=== PATIENT | female | born 1975 | race Caucasian/White ===

== ENCOUNTER → 2016-06-26 | Outpatient (CLI) | payer OTHER ==
[~2016-06-26] MED LIST: PRENCAP6 PO
== END ==
LOC: HPND 13:05
PROVIDERS: ATTEND Obstetrics & Gynecology
DX: O09.521 Supervision of elderly multigravida, first trimester (principal); O34.212 Maternal care for vertical scar from previous cesarean delivery; O03.9 Complete or unspecified spontaneous abortion without complication; O03.4 Incomplete spontaneous abortion without complication; O34.211 Maternal care for low transverse scar from previous cesarean delivery
CPT/HCPCS: 36416; 76813

== ENCOUNTER → 2016-08-07 | Outpatient (CLI) | payer OTHER | LOC: HPND 08:06 | PROVIDERS: ATTEND Obstetrics & Gynecology | DX: O09.522 Supervision of elderly multigravida, second trimester (principal); Z3A.20 20 weeks gestation of pregnancy | CPT/HCPCS: 76811 ==

== ENCOUNTER → 2016-09-04 | Outpatient (CLI) | payer OTHER | LOC: HPND 07:35 | PROVIDERS: ATTEND Obstetrics & Gynecology | DX: O09.522 Supervision of elderly multigravida, second trimester (principal); O44.02 Complete placenta previa NOS or without hemorrhage, second trimester; Z3A.24 24 weeks gestation of pregnancy | CPT/HCPCS: 76816; 76817 ==

== ENCOUNTER → 2016-10-02 | Outpatient (CLI) | payer OTHER | LOC: HPND 07:42 | PROVIDERS: ATTEND Obstetrics & Gynecology | DX: O09.522 Supervision of elderly multigravida, second trimester (principal); O44.02 Complete placenta previa NOS or without hemorrhage, second trimester; O34.212 Maternal care for vertical scar from previous cesarean delivery | CPT/HCPCS: 76816; 76817 ==

== ENCOUNTER → 2016-10-30 | Outpatient (CLI) | payer OTHER | LOC: HPND 07:46 | PROVIDERS: ATTEND Obstetrics & Gynecology | DX: O09.523 Supervision of elderly multigravida, third trimester (principal); O34.212 Maternal care for vertical scar from previous cesarean delivery; O44.03 Complete placenta previa NOS or without hemorrhage, third trimester; Z3A.32 32 weeks gestation of pregnancy | CPT/HCPCS: 76816; 76817 ==

== ENCOUNTER 2016-11-13 09:18 | Inpatient (IN) | payer OTHER ==
[~2016-11-13] VITALS: Ht 167.6 cm; Wt 79.0 kg
--- NOTE | 2016-12-04 09:04 | MH ---
cc: ALYSIA,SUJIT MALDONADO DATE OF ADMISSION 12/05/2016 DATE OF 1975 ADMISSION DIAGNOSIS 1. at 37 weeks. 2. Advanced maternal terminal age 41 3. Previous classical section for previa. 4. Recurrent placental previa. HISTORY OF PRESENT ILLNESS The patient is a 41-year-old white female para 2-0-3-2 with an LMP of 03/26/2016, EDC of 12/31/2016. Her course has been benign. PAST MEDICAL HISTORY Previous surgery: 1. She had hysteroscopy. 2. She had a laparoscopic cholecystectomy in 1995. 3. Right knee dislocation 4. Patella repair in 2002 5. PE tubes in childhood 6. Third molars as a teenager OBSTETRICAL HISTORY 1. In 2008, she had a spontaneous at four weeks. 2. In 2010, she had for transverse lie and 2012 She had a classical for complete previa. 3. In 2015 in September, she had spontaneous 9-10 weeks and required D&C. 4. In January of 2016, she had spontaneous at 4-5 weeks with no D&C. SUMMARY FOR THIS She had normal self testing. She has had normal first TM screen and normal level II diagnostic ultrasounds. She had an MRI that showed no evidence for accreta at 32 weeks. Her most recent ultrasound at [facility] on 11/28/2016 showed a vertex presentation and normal fluid. The placenta is anterior, posterior and right lateral and low lying. It appears to be from the internal os. SOCIAL HISTORY She is . 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 Alcohol, tobacco and drugs are none. FAMILY HISTORY Her family history is noncontributory. PHYSICAL EXAM This is a well-nourished, well-developed white female. VITAL SIGNS: Stable. HEENT: Exam is normal. CHEST: Clear. HEART: Regular rate. BREASTS: Symmetrical. ABDOMEN: Gravid. EFW 2000 grams. PELVIC: Deferred due to previa. EXTREMITIES: Normal. ASSESSMENT As above. PLAN She is now admitted repeat classical . I explained the procedure, the risks, benefits and complications and patient would like to proceed. She is aware of the risk of hemorrhage and possible need for transfusion and hysterectomy if there were intractable bleeding. Dr. Barron been consulted to assist in her surgery. MD EDUAR Méndez/DJL /8:38 AM /8:46 AM
[2016-12-05] MEDS ORDERED: LACTATED RINGER'S 1000 ML IV ONE (06:00)
[2016-12-05] MEDS ORDERED: CITRIC ACID-SODIUM CITRATE LIQ 30 ML UDC PO SCH (06:00)
[2016-12-05] MEDS ORDERED: ceFAZolin 2 GM PREMIX 50 ML IV SCH (06:00)
[2016-12-05 06:42] LABS: AUTOMATED NEUTROPHIL # 5.8 TH/MM3 (1.8-7.7); BASOPHIL # 0.1 TH/MM3 (0-0.2); BASOPHIL % 0.6 % (0.0-2.0); EOSINOPHIL # 0.1 TH/MM3 (0-0.4); EOSINOPHIL % 1.4 % (0.0-4.0); HEMATOCRIT 34.7 % (35.0-46.0); HEMO FLAGS DIFF FINAL; LYMPH % 22.5 % (9.0-44.0); LYMPHOCYTE # 1.9 TH/MM3 (1.0-4.8); MEAN CELL VOLUME 91.9 FL (80.0-100.0); MEAN CORPUSCULAR HEMOGLOBIN 30.7 PG (27.0-34.0); MEAN CORPUSCULAR HGB CONC 33.4 % (32.0-36.0); MONO % 8.1 % (0.0-8.0); NEUT % 67.4 % (16.0-70.0); PLATELET COUNT 180 TH/MM3 (150-450); RED BLOOD COUNT 3.78 MIL/MM3 (4.00-5.30); RED CELL DISTRIBUTION WIDTH 12.8 % (11.6-17.2); WHITE BLOOD COUNT 8.6 TH/MM3 (4.0-11.0)
[2016-12-05 06:56] LABS: BACTERIA, URINE OCC /hpf; BLOOD, URINE NEG (NEG); COMMENT (UR) CULT NOT INDICATED; CULTURE IF INDICATED CULT NOT INDICATED; GLUCOSE,URINE NEG (NEG); KETONE, URINE NEG (NEG); MUCUS URINE FEW /lpf (OCC); NITRITE,URINE NEG (NEG); SQUAMOUS EPITHELIAL CELL URINE 12 /hpf (0-5); URINE COLOR YELLOW (YELLW/STRAW)
[2016-12-05] MEDS ORDERED: OXYTOCIN 10 UNIT/ML AMP ONE (07:10)
[2016-12-05] MEDS ORDERED: ACETAMINOPHEN 1000 MG/100 ML VIAL IV ONE (07:20)
[2016-12-05] MEDS ORDERED: MORPHINE SULFATE PF 5 MG/10 ML VIAL ONE (07:21)
[2016-12-05] MEDS ORDERED: ONDANSETRON HCL 4 MG/2 ML VIAL ONE (07:21)
[2016-12-05] MEDS ORDERED: EPIDURAL-NO SYSTEMIC NARCOTICS PRN (07:30)
[2016-12-05] MEDS ORDERED: EPIDURAL-NALOXONE HCL 0.4 MG/ML AMP IV PRN (07:30)
[2016-12-05] MEDS ORDERED: EPIDURAL-DO NOT ADMINISTER ANTICOAGULANTS PRN (07:30)
[2016-12-05] MEDS ORDERED: EPIDURAL-DIPHENHYDRAMINE HCL 50 MG CAP PO PRN (07:30)
[2016-12-05] MEDS ORDERED: EPIDURAL-DIPHENHYDRAMINE HCL 50 MG/ML VIAL IV PUSH PRN (07:30)
[2016-12-05] MEDS ORDERED: ZOLPIDEM TARTRATE 5 MG TAB PO PRN (08:30)
[2016-12-05] MEDS ORDERED: KETOROLAC TROMETHAMINE 30 MG/ML (IVP) VIAL IV PUSH PRN (08:30)
[2016-12-05] MEDS ORDERED: SODIUM CHLORIDE 0.9% FLUSH 5 ML FLUSH IV PRN (08:30)
[2016-12-05] MEDS ORDERED: KETOROLAC TROMETHAMINE 60 MG/2 ML (IM) VIAL IM PRN (08:30)
[2016-12-05] MEDS ORDERED: DOCUSATE SODIUM 50 MG/SENNA 8.6 MG TAB PO PRN (08:30)
[2016-12-05] MEDS ORDERED: ONDANSETRON HCL 4 MG/2 ML VIAL IVP PRN (08:30)
[2016-12-05] MEDS ORDERED: OXYTOCIN 30 UNITS-500ML PREMIX 500 ML IV ONE (08:30)
[2016-12-05] MEDS ORDERED: MEASLES, MUMPS, RUBELLA VACCINE 0.5 ML VIAL SQ ONE (08:30)
--- NOTE | 2016-12-05 08:59 | MP ---
cc: SUJIT HATFIELD DATE OF SURGERY 12/05/2016 PREOPERATIVE DIAGNOSES 1. at 37 weeks. 2. Advanced maternal age of 41. 3. Anterior placenta praevia. 4. Previous low-transverse section. 5. Previous classical for praevia. POSTOPERATIVE DIAGNOSES 1. at 37 weeks. 2. Advanced maternal age of 41. 3. Anterior placenta praevia. 4. Previous low-transverse section. 5. Previous classical for praevia. 6. Delivered. PROCEDURE Repeat classical section. ANESTHESIA Spinal. SURGEON Sujit Hatfield MD GENERALIST SURGEON Dr. Sujit Ndiaye MD STEAM HEATING INSTALLER ТАТЬЯНА Maurer ESTIMATED BLOOD LOSS 800 cc. FLUIDS 1.6 liters crystalloid. OBJECTIVE FINDINGS Following induction of adequate spinal anesthesia the patient was prepped and draped supine on the operating table in the left lateral tilt position in sterile fashion with the bladder being drained by Hernandez catheterization. The abdomen was entered through a low transverse muscle-splitting incision using a knife to excise the old scar. The fascia and peritoneum were opened transversely. The bladder flap was taken down sharply and retracted inferiorly, used to open the midline using a knife to cut down until at the level of the placenta and scissors were used to extending anteriorly with the band aid machine operator's fingers in place to protect the underlying placental sac. The membranes were then ruptured and the baby was delivered from the Vtx position with guidance and fundal pressure. The mouth was suctioned, the cord clamped and cut and the baby passed to the awaiting team, a viable, vigorous male, Apgars 9 and 9, weight 7 pounds even. The placenta was delivered manually, the cavity inspected. There was no excessive bleeding. The uterus then closed in three layers of interrupted sutures of 0 Vicryl in [id number] fashion. The bladder flap was reapproximated with 3-0 Vicryl, irrigation performed; no bleeding was evident. The posterior surface of the uterus appeared normal. The uterus was placed in the abdominal cavity and the wound line covered with Interceed. The peritoneum was closed with a running stitch of 0 Vicryl from the corners to the midline and tied, the fascia closed with a running stitch of #1 PDS from the corners to the midline and tied, the subcu was closed with 3-0 Vicryl running and the skin with a running 3-0 Monocryl subcuticular. Dermabond applied. All counts were correct and the was awakened and taken to the recovery room in good condition. MD EDUAR Méndez/SHAHID /8:40 AM /8:46 AM SELENA
[2016-12-05] MEDS: SODIUM CHLORIDE 0.9% FLUSH 5 ML FLUSH IV SCH (09:00)
[2016-12-05] MEDS ORDERED: OXYTOCIN 30 UNITS-500ML PREMIX 500 ML ONE (09:23)
[2016-12-05] MEDS ORDERED: ACETAMINOPHEN 1000 MG/100 ML VIAL IV SCH (10:00)
[2016-12-05] MEDS: ACETAMINOPHEN 1000 MG/100 ML VIAL IV SCH ×2 (16:22→23:44)
[2016-12-05] MEDS ORDERED: OXYTOCIN 30 UNITS-500ML PREMIX 500 ML IV PRN (18:15)
[2016-12-05] MEDS: LACTATED RINGER'S 1000 ML INJ 1,000 ML IV SCH (19:07)
[2016-12-05] MEDS: SIMETHICONE 80 MG CHEWABLE TAB PO PRN (23:41)
[2016-12-06] MEDS: IBUPROFEN 600 MG TAB PO PRN ×3 (03:07→19:32)
[2016-12-06 05:56] LABS: AUTOMATED NEUTROPHIL # 8.8 TH/MM3 (1.8-7.7); BASOPHIL # 0.1 TH/MM3 (0-0.2); BASOPHIL % 0.7 % (0.0-2.0); EOSINOPHIL # 0.1 TH/MM3 (0-0.4); EOSINOPHIL % 0.8 % (0.0-4.0); HEMATOCRIT 28.6 % (35.0-46.0); HEMO FLAGS DIFF FINAL; LYMPH % 12.6 % (9.0-44.0); LYMPHOCYTE # 1.4 TH/MM3 (1.0-4.8); MEAN CELL VOLUME 91.3 FL (80.0-100.0); MEAN CORPUSCULAR HEMOGLOBIN 31.5 PG (27.0-34.0); MEAN CORPUSCULAR HGB CONC 34.5 % (32.0-36.0); MONO % 5.5 % (0.0-8.0); NEUT % 80.4 % (16.0-70.0); PLATELET COUNT 149 TH/MM3 (150-450); RED BLOOD COUNT 3.14 MIL/MM3 (4.00-5.30); RED CELL DISTRIBUTION WIDTH 12.9 % (11.6-17.2); WHITE BLOOD COUNT 10.9 TH/MM3 (4.0-11.0)
[2016-12-06 06:20] LABS: BICARBONATE 28.9 MEQ/L (21.0-32.0); POTASSIUM 3.7 MEQ/L (3.5-5.1)
[2016-12-06] MEDS: ACETAMINOPHEN 1000 MG/100 ML VIAL IV SCH (08:15)
[2016-12-06] MEDS: SIMETHICONE 80 MG CHEWABLE TAB PO PRN ×2 (10:19→19:31)
[2016-12-06] MEDS: oxyCODONE/ACETAMINOPHEN 5 MG/325 MG TAB PO PRN ×2 (13:40→17:50)
[2016-12-07] MEDS: IBUPROFEN 600 MG TAB PO PRN ×3 (02:13→16:12)
[2016-12-07] MEDS: oxyCODONE/ACETAMINOPHEN 5 MG/325 MG TAB PO PRN ×4 (02:13→19:23)
[2016-12-07] MEDS: LACTATED RINGER'S 1000 ML IV SCH ×4 (07:32→18:00)
[2016-12-07] MEDS: LACTATED RINGER'S 1000 ML INJ 1,000 ML IV SCH (07:33)
[2016-12-07] MEDS: SIMETHICONE 80 MG CHEWABLE TAB PO PRN ×2 (08:10→16:13)
[2016-12-07] MEDS ORDERED: DIPHTH/TETANUS/ACEL PERTUSSIS (BOOSTER) 0.5 ML VIAL/PFS IM ONE (09:00)
[2016-12-07] MEDS: SODIUM CHLORIDE 0.9% FLUSH 5 ML FLUSH IV SCH (09:19)
[2016-12-08] MEDS: IBUPROFEN 600 MG TAB PO PRN ×2 (01:07→08:20)
[2016-12-08] MEDS: SIMETHICONE 80 MG CHEWABLE TAB PO PRN (08:19)
--- NOTE | 2016-12-08 10:37 | HHI.DCPOC ---
Discharge Care Plan Report Symptoms to Your Doctor -Temperature above 100.5 degrees -Redness, of incision or excessive or foul smelling drainage -Unusual pain or calf pain -Increased vaginal bleeding -Painful or difficulty urinating -Feelings of extreme sadness or anxiety after 2 weeks Goals to Promote Your Health * To prevent worsening of your condition and complications * To maintain your health at the optimal level Directions to Meet Your Goals Take your medications as prescribed Follow your dietary instruction Follow activity as directed Ensure plenty of rest for recovery Drink fluids for hydration Keep your appointments as scheduled Take your immunizations and boosters as scheduled If your symptoms worsen call your PCP, if no PCP go to Urgent Care Center or Emergency Room Smoking is Dangerous to Your Health. Avoid second hand smoke Call the 24-hour crisis hotline for domestic abuse at Timothy Apple MD Dec 08, 2016 10:37
--- NOTE | 2016-12-12 15:30 | MD ---
cc: SUJIT HATFIELD M.D. ADMISSION DATE: 12/05/2016 DISCHARGE DATE: 12/08/2016 ADMITTING DIAGNOSIS 1. at 37 weeks. 2. Advanced maternal age of 41. 3. Placenta previa. 4. Previous low transverse section. 5. Previous classical section. DISCHARGE DIAGNOSIS 1. at 37 weeks. 2. Advanced maternal age of 41. 3. Placenta previa. 4. Previous low transverse section. 5. Previous classical section. 6. Delivered. PROCEDURE Repeat classical section on 12/05/2016. HISTORY OF PRESENT ILLNESS A 41-year-old white female, para 2-0-3-2, with EDC of 12/27/16 by early ultrasound. Her course was benign. Her first TM screen and cfDNA testing were normal. Ultrasound showed previa. This was followed closely due to history of previous of previa with her second . Her MRI was normal. HOSPITAL COURSE She was admitted for repeat section on 12/05/2016, classical, with findings anterior and lateral and posterior previa. She had a viable vigorous male, Apgars 9 and 9, weight 7 pounds even. The baby was named Jose F and she is breast feeding. she did well and was discharged home in excellent condition on 12/08/2016. She was advised NPV, light activity, no driving, return to see me in one week. Circumcision was declined. She will call if any abnormal symptoms. She is take her vitamins daily. She was given a prescription for Percocet 5, 1-2 p.o. q.4h. p.r.n. pain, #60. MD EDUAR Méndez/AUDREY /10:46 AM /3:24 PM SELENA
== END 2016-12-08 11:56 | disposition home or self-care (01) | DRG 765 ==
LOC: H2EB 12-05 05:35 → H1EA 12-05 09:54
PROVIDERS: ADMIT Obstetrics & Gynecology; ATTEND Obstetrics & Gynecology
PROC: 10D00Z0 Extraction of Products of Conception, High, Open Approach (ICD-10-PCS; principal; 2016-12-05)
PROC: 3E0P05Z Introduction of Adhesion Barrier into Female Reproductive, Open Approach (ICD-10-PCS; 2016-12-05)
DX: O34.212 Maternal care for vertical scar from previous cesarean delivery (principal); O44.03 Complete placenta previa NOS or without hemorrhage, third trimester; O09.523 Supervision of elderly multigravida, third trimester; O34.211 Maternal care for low transverse scar from previous cesarean delivery; Z3A.37 37 weeks gestation of pregnancy; Z37.0 Single live birth
CPT/HCPCS: 59025; 80048; 81001; 85025; 86850; 86900; 86901; 86920; 90715; C1765; J0131; J0690; J2274; J2405; J2590; J3010; J7120

== ENCOUNTER → 2016-11-28 | Outpatient (CLI) | payer OTHER | LOC: HPND 07:50 | PROVIDERS: ATTEND Obstetrics & Gynecology | DX: O32.1XX0 Maternal care for breech presentation, not applicable or unspecified (principal); O44.03 Complete placenta previa NOS or without hemorrhage, third trimester; O09.523 Supervision of elderly multigravida, third trimester; O34.211 Maternal care for low transverse scar from previous cesarean delivery | CPT/HCPCS: 76816; 76817; 76818 ==